=== PATIENT | female | born 1990 | race African-American/Black ===

== ENCOUNTER 2019-05-13 09:18 | Emergency (ER) | payer OTHER, SELFPAY ==
[2019-05-13 09:29] VITALS: BP 128/85; PULSE 80; RESP 16; TEMP 36.8; O2SAT 100
--- NOTE | 2019-05-13 09:30 | ED.URI ---
HPI - URI/Sore Throat General Chief Complaint: Upper Respiratory Infection Stated Complaint: sinus drainage/vomiting Time Seen by Provider: 05/13/19 09:30 Source: patient and RN notes reviewed History of Present Illness HPI Narrative: Patient is a 28-year-old female that presents the urgent care with complaints of nausea due to postnasal drainage. Patient states that she does have a mild sore throat that started after the drainage. States that symptoms started on Friday and she is taken TheraFlu. Patient states that she typically takes Mucinex for her symptoms but has not recently taken any. Patient states that she was on her way to work and did not make it and therefore needed to be seen . Patient denies any abdominal pain or fever. Denies any known exposure to COVID. No other acute complaints. No acute distress noted. Patient read the plan of care. Related Data Home Medications Medication Instructions Recorded Confirmed ergocalciferol (vitamin D2) 1,250 mcg PO DAILY 05/13/19 05/13/19 metronidazole 500 mg PO DAILY 05/13/19 05/13/19 Allergies Allergy/AdvReac Type Severity Reaction Status Date / Time No Known Allergies Allergy Verified 05/13/19 09:40 Review of Systems Review of Systems: Narrative: CONSTITUTIONAL: Denies fever, chills, or sweats. EYES: Denies visual changes, redness, or discharge. ENT: Reports of postnasal drainage, sore throat CARDIOVASCULAR: Denies chest pain, palpitations, or edema. RESPIRATORY: Denies cough or dyspnea. GASTROINTESTINAL: Reports of nausea due to postnasal drainage GENITOURINARY: Denies dysuria or hematuria. SKIN: Denies rash or itching. MUSCULOSKELETAL: Denies back pain, joint pain, or myalgia. NEUROLOGIC: Denies headache, numbness, or weakness. All other systems reviewed are negative, except as documented in HPI. PMFSH Comments At the time of my signature, I reviewed and agree with the nursing past medical, surgical, social, and family history. There is no relevant family history pertinent to the patient complaint. Exam Narrative: Exam Narrative: GENERAL: This is a well-nourished, well-developed patient, in no apparent distress. HEAD: normocephalic, atraumatic. EYES: PERRL. Sclera clear/white. Vision is grossly intact. EARS: External ears normal, auditory canals clear and without drainage, TMs normal without perforation. Hearing grossly intact. NOSE: External nose normal with no obvious nasal discharge, nares without redness, clear rhinorrhea. THROAT: Mucous membranes moist, mild erythema noted posterior oropharynx with moderate postnasal drainage. NECK: Neck supple, non-tender without lymphadenopathy CARDIOVASCULAR: Regular rate and rhythm without murmurs, gallops, or rubs. RESPIRATORY: Clear to auscultation. Breath sounds equal bilaterally. No wheezes, rales, or rhonchi. SKIN: warm, intact with no suspicious lesions or rash, good texture and turgor. NEURO: awake, alert, and oriented to person, place and time. There were no obvious focal neurologic abnormalities. EXTREMITIES: No clubbing, cyanosis, or edema. Course Vital Signs Vital signs: Vital Signs Temperature 98.3 F 05/13/19 09:29 Pulse Rate 80 05/13/19 09:29 Respiratory Rate 16 05/13/19 09:29 Blood Pressure 128/85 05/13/19 09:29 Pulse Oximetry 100 05/13/19 09:29 Temperature 98.3 F 05/13/19 09:29 Pulse Rate 80 05/13/19 09:29 Respiratory Rate 16 05/13/19 09:29 Blood Pressure 128/85 05/13/19 09:29 Pulse Oximetry 100 05/13/19 09:29 Reviewed MDM - URI/Sore Throat MDM Narrative Medical decision making narrative: Advised the patient to use [id number] antihistamine and Flonase nasal spray for postnasal drainage. Increase fluids and rest. Use humidifier at night. Patient should remain quarantined if she is symptomatic with any upper respiratory symptoms. Follow-up with PCP as necessary. Differential Diagnosis Differential diagnosis: Likely upper respiratory infection, otitis
== END 2019-05-13 09:55 | disposition home or self-care (01) ==
PROVIDERS: Emergency Provider Nurse Practitioner Family; PCP Family Medicine
DX: R09.82 Postnasal drip (principal)
CPT/HCPCS: 99211; G0463

== ENCOUNTER 2019-12-20 08:55 | Outpatient (CLI) | payer OTHER, SELFPAY ==
--- NOTE | ~2019-12-20 | XR_ITS ---
EXAMINATION: XR hysterosalpingogram INDICATION: Infertility evaluation TECHNIQUE: Hysterosalpingogram was performed by Dr. Miki Chino MD with fluoroscopic guidance. I was present to obtain fluoroscopic images. Fluoroscopy exposure time was 0.7 minutes. The DAP for th is procedure was 2.611 Gycm2. FINDINGS: Extension Service Specialist radiograph demonstrates an unremarkable pelvis. Fluoroscopic images demonstrate a no rmal appearing endometrial cavity which has been cannulated. Upon injection of contrast, both fallop taiwo tubes opacify and are normal in appearance. There is free spillage bilaterally. Uterus is withou t evidence of synechia. IMPRESSION: Patent fallopian tubes. Reviewed, dictated and finalized at location A. [employer] MEDIA DESIGNER IMPRESSION: Patent fallopian tubes.
== END 2019-12-20 08:56 | disposition home or self-care (01) ==
LOC: ANHIMG 09:03
PROVIDERS: PCP Family Medicine; Visit Provider Obstetrics & Gynecology
DX: Z31.41 Encounter for fertility testing (principal)
CPT/HCPCS: 58340; 74740; Q9966

== ENCOUNTER 2021-02-20 09:58 | Outpatient (CLI) | payer OTHER, SELFPAY ==
[2021-02-20 12:03] LABS: SARS-CoV-2 RNA PCR Positive (Negative)
== END 2021-02-20 09:59 | disposition home or self-care (01) ==
LOC: CHSLAB 10:05
PROVIDERS: PCP Family Medicine; Visit Provider Pathology Anatomic Pathology & Clinical Pathology
DX: U07.1 COVID-19 (principal)
CPT/HCPCS: C9803; U0003; U0005

== ENCOUNTER 2021-03-09 14:01 | Emergency (ER) | payer OTHER, SELFPAY ==
[2021-03-09 14:10] VITALS: BP 140/88; PULSE 78; RESP 16; TEMP 36.9; O2SAT 100
--- NOTE | 2021-03-09 14:35 | ED.WOUNDLAC ---
HPI - Wound/Laceration General Chief Complaint: Wound/Laceration Stated Complaint: finger laceration Time Seen by Provider: 03/09/21 14:25 Source: patient, family and RN notes reviewed History of Present Illness HPI narrative: 30-year-old female [facility]eration to her right index finger palmar side distally which occurred around 8:00 this morning when she was securing a fresh razor blade onto the machine at work.. She works as a dentures lab technician, denies any tingling or numbness to her finger and has full mobility of right index finger. Patient states that she has not had an updated tetanus shot. Patient reports that she has had a hard time getting bleeding to stop, presently bleeding controlled. Onset (ago): hour(s) (At 0800 today) Extremity Location: Right: hand (right distal index nice) Place: work Patient tetanus UTD: No Context: accidental Related Data Home Medications Medication Instructions Recorded Confirmed ergocalciferol (vitamin D2) 1,250 mcg PO DAILY 05/13/19 05/13/19 Allergies Allergy/AdvReac Type Severity Reaction Status Date / Time No Known Allergies Allergy Verified 05/13/19 09:40 Review of Systems Review of Systems: CONSTITUTIONAL: Denies fever, chills, or sweats. EYES: Denies visual changes, redness, or discharge. ENT: Denies rhinorrhea, congestion, sore throat, or otalgia. CARDIOVASCULAR: Denies chest pain, palpitations, or edema. RESPIRATORY: Denies cough or dyspnea. GASTROINTESTINAL: Denies abdominal pain, nausea, vomiting, or diarrhea. GENITOURINARY: Denies dysuria or hematuria. SKIN: Denies rash or itching.Positive for laceration to the distal nice aspect of her right index finger MUSCULOSKELETAL: Denies back pain, joint pain, or myalgia. NEUROLOGIC: Denies headache, numbness, or weakness. PSYCHIATRIC: Denies anxiety or depression. 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 There is no relevant family history pertinent to the presenting complaint Exam Narrative: GENERAL: Well-appearing, well-nourished, and in no acute distress. HEAD: Normocephalic, atraumatic. EYES: PERRLA and EOMI. ENT: Nares clear, no rhinorrhea or epistaxis. Mucous membranes moist.TM's normal with good light reflex, throat pink with no lesions or exudates noted NECK: Supple.no lymphadenopathy CHEST: Clear to auscultation. No respiratory distress. SAO2 100% on room air HEART: Regular rate and rhythm.2/ murmur heard. Normal peripheral pulses. ABDOMEN: Soft, nontender, nondistended, normal active bowel sounds. EXTREMITIES: Normal range of motion. No edema. SKIN: Warm, dry, no rash, laceration to the right distal nice finger, 0.75cm in length linear, no tingling or numbness to her right index finger full mobility and circulation is intact. NEURO: No focal deficits. Alert and oriented x3. Course Course Level of Care: Express Care Visit Vital Signs Vital signs: Vital Signs Temperature 36.9 C 03/09/21 14:10 Pulse Rate 78 03/09/21 14:10 Respiratory Rate 16
[2021-03-09] MEDS: TETANUS,DIPHTHERIA,AC PERTUSSIS ADULT (0.5 ML) BOOSTRIX IM (15:11)
== END 2021-03-09 15:15 | disposition home or self-care (01) ==
PROVIDERS: Emergency Provider Registered Nurse; PCP Family Medicine
DX: S61.210A Laceration without foreign body of right index finger without damage to nail, initial encounter (principal); W26.8XXA Contact with other sharp object(s), not elsewhere classified, initial encounter; Y99.0 Civilian activity done for income or pay; Z23 Encounter for immunization; R01.1 Cardiac murmur, unspecified
CPT/HCPCS: 12001; 90471; 90715; 99212; G0463

== ENCOUNTER 2021-05-23 08:13 | Outpatient (CLI) | payer OTHER, SELFPAY ==
--- NOTE | ~2021-05-23 | US_ITS ---
EXAMINATION: US OB <=14 wk fetus w TV DATE: 05/23/2021 09:47 INDICATION: Uncertain dating of during first trimester TECHNIQUE: Real-time pelvic ultrasound utilizing transabdominal probe was performed. The des oneill radiologist was not present for the study. COMPARISON: None. FINDINGS: The uterus measures 113 x 7.0 x 6.1 cm. There is an intrauterine gestational sac. A yolk sac and fet al pole are identified. The crown rump length measures 9 mm, which correlates with an estimated gesta tional age of 6 weeks and ex days. heart motion is identified measuring 142 beats per minute (b pm) by M-mode Doppler. Hypoechoic likely subchorionic hematoma along the anterior to fundal margins o f the gestational sac which measures approximately 2-2.5 cm proximal to distal, 5.2 cm from left to r ight and approximately 5 mm in thickness. The right ovary measures 4.2 x 2.4 x 3.0 cm. 2.1 cm right ovarian likely corpus luteum cyst which is centrally anechoic with thick isoechoic peripheral mass. The left ovary measures 2.5 x 1.9 x 1.7 cm. 4 mm anechoic left ovarian cyst/follicle. There is no free fluid in the pelvis. IMPRESSION: 1. Single living fetus with heart rate of 142 bpm. 2. Gestational age by ultrasound of 6 weeks 6 day(s) +/- 4 day(s) with ultrasound estimated date of delivery (BALJINDER) of 01/10/2022. 3. Moderate-sized subchorionic hematoma which extends along the anterior and fundal aspects of the ge stational sac. Reviewed, dictated and finalized at location B. IMPRESSION: 1. Single living fetus with heart rate of 142 bpm. 2. Gestational age by ultrasound of 6 weeks 6 day(s) +/- 4 day(s) with ultraso und estimated date of delivery (BALJINDER) of 01/10/2022. 3. Moderate-sized subchorionic hematoma which extends along the anterior and fu ndal aspects of the gestational sac.
== END 2021-05-23 08:14 | disposition home or self-care (01) ==
PROVIDERS: PCP Family Medicine; Visit Provider Obstetrics & Gynecology Gynecology
DX: Z36.87 Encounter for antenatal screening for uncertain dates (principal); Z3A.01 Less than 8 weeks gestation of pregnancy
CPT/HCPCS: 76801; 76817

== ENCOUNTER 2021-06-05 09:36 | Outpatient (CLI) | payer OTHER, SELFPAY ==
--- NOTE | ~2021-06-05 | US_ITS ---
EXAMINATION: US OB <= 14 weeks fetus EXAM DATE: 06/05/2021 10:20 INDICATION: Subchorionic hematoma. 1st trimester. TECHNIQUE: Pelvic obstetrical transabdominal sonogram was performed by a technologist. There are mu ltiple grayscale and Doppler images available for interpretation. Comparison is made to prior examina tion from 05/23/2021. FINDINGS: Uterus measures 10.7 x 8.3 x 6.3 cm. There is intrauterine gestation sac. pole with heart rate confirmed at 171 beats per minute. The 2.5 cm crown-rump length corresponds to estimated gestational age by ultrasound of 9 weeks 1 day. Yolk sac is identified. Subchorionic hematoma now i s hypoechoic, has subacute appearance, measuring 2.5 x 1.7 x 3.5 cm, mild interval decrease in size. Ovaries not specifically identified. IMPRESSION: Live intrauterine gestation with small to moderate size subacute subchorionic hematoma, interval improvement. Reviewed, dictated and finalized at location A. IMPRESSION: Live intrauterine gestation with small to moderate size subacute s ubchorionic hematoma, interval improvement.
== END 2021-06-05 09:37 | disposition home or self-care (01) ==
PROVIDERS: PCP Family Medicine; Visit Provider Obstetrics & Gynecology Gynecology
DX: O36.8910 Maternal care for other specified fetal problems, first trimester, not applicable or unspecified (principal); Z3A.00 Weeks of gestation of pregnancy not specified
CPT/HCPCS: 76801

== ENCOUNTER 2021-06-20 15:03 | Outpatient (CLI) | payer OTHER, SELFPAY ==
--- NOTE | ~2021-06-20 | US_ITS ---
EXAMINATION: US OB <= 14 weeks fetus INDICATION: SUBCHORIONIC HEMORRHAGE 1ST TRIMESTER TECHNIQUE: Sonography of the pelvis was performed by transabdominal and transvaginal techniques. COMPARISON: 06/05/21 RESULT: Uterus: - Orientation: Anteverted - Size: 10.3 x 7.7 x 9.4 cm - Myometrium: homogeneous echogenicity Gestation: - Intrauterine gestational sac: Single present - Embryo: Single present. Yolk sac is present but was not directly measured by the stock feeder . - [place] rump length: 4.55 cm, corresponding gestational age 11 weeks, 1 days -Gestational heart rate: present 157 bpm -Subgestational hematoma: Small hypoechoic area adjacent to the gestational sac in the region of previously identified subdural gestational hematoma, subjectively much smaller, not directly measu red by the stock feeder. Right ovary: -Not visualized Left ovary: -Not visualized Pelvis free fluid: None. IMPRESSION: Single, live intrauterine gestation. Estimated Gestational Age: 11 weeks, 1 days by crown rump length. BALJINDER 01/10/2022, [place] by BALJINDER 10 weeks 6 days. Continued interval improvement in the small subchorionic hematoma. Reviewed, dictated and finalized at location K.
== END 2021-06-20 15:04 | disposition home or self-care (01) ==
PROVIDERS: PCP Family Medicine; Visit Provider Obstetrics & Gynecology Gynecology
DX: O36.8910 Maternal care for other specified fetal problems, first trimester, not applicable or unspecified (principal); Z3A.11 11 weeks gestation of pregnancy
CPT/HCPCS: 76801

== ENCOUNTER 2021-07-23 10:56 | Outpatient (CLI) | payer OTHER, SELFPAY ==
--- NOTE | ~2021-07-23 | US_ITS ---
EXAMINATION: US OB follow up DATE: 07/23/2021 11:46 INDICATION: Subchorionic hematoma. TECHNIQUE: Real-time ultrasound of the pelvis was performed. COMPARISON: 06/20/2021. FINDINGS: There is a single living fetus in breech presentation. The placenta is posterior end lies within 1.1 cm of the cervix. No subgestational hematoma is detected in this exam. heart rate is 145 beats per minute (bpm). The amniotic fluid index was not measured in this exam, but is subjectively within normal limits.] Left ovary is normal in size and morphology. Right ovary not visualized. The following biometric data were obtained: Biparietal diameter (BPD): 3.2 cm; head circumference (HC): 12.3 cm; abdominal circumference (AC): 9. 6 cm; femur length (FL): 1.9 cm. These measurements are concordant. Estimated weight is 132.4 g +/- 19.9 g, which correlates with the 49th percentile when 01/11/20 is used as estimated date of delivery. As single measurements, these parameters are each equal to the following estimated gestational ages w ith ranges of +/- 2 standard deviations: BPD: 16 weeks 0 days +/- 1 weeks 1 days. HC: 16 weeks 1 days +/- 1 weeks 1 days. AC: 15 weeks 5 days +/- 1 weeks 5 days. FL: 15 weeks 4 days +/- 1 weeks 3 days. estimated gestational age based solely on measurements from this exam is 15 weeks 6 days +/- 1 weeks 1 days. IMPRESSION: 1. Single living fetus in breech presentation. 2. Posterior placenta that lies within 1.1 cm of the cervix. 3. Interval resolution of the previously described subchorionic hematoma. 4. Based on measurements from this examination: EFW 132.4 g, EGA 15 weeks 6 days, BALJINDER 01/08/2022. 5. BALJINDER by prior ultrasound 01/10/2022. Reviewed, dictated and finalized at location K. IMPRESSION: 1. Single living fetus in breech presentation. 2. Posterior placenta that lies within 1.1 cm of the cervix. 3. Interval resolution of the previously described subchorionic hematoma. 4. Based on measurements from this examination: EFW 132.4 g, EGA 15 weeks 6 da ys, BALJINDER 01/08/2022. 5. BALJINDER by prior ultrasound 01/10/2022.
== END 2021-07-23 10:57 | disposition home or self-care (01) ==
PROVIDERS: PCP Family Medicine; Visit Provider Obstetrics & Gynecology Gynecology
DX: O36.8920 Maternal care for other specified fetal problems, second trimester, not applicable or unspecified (principal); Z3A.00 Weeks of gestation of pregnancy not specified
CPT/HCPCS: 76816

== ENCOUNTER 2022-01-03 18:37 | Inpatient (IN) | payer OTHER, SELFPAY ==
[2022-01-03] VITALS (12 sets, daily range): BP systolic 105–118; BP diastolic 73–83; PULSE 74–90; TEMP 36.4–36.6; BMI 29.8
--- OUTSIDE RECORDS SUMMARY | 2022-01-03 18:43 | XMS_ITS ---
:1990 Author Care Team Providers Name Role Phone Brook Copeland Primary Care Provider Unavailable Allergies Code Code System Name Reaction Severity Status Onset NKDA ? Medications Name Status Start Date Stop Date ? ? amoxicillin 875 mg tablet Active ? Not av ailable TK 1 T PO Q 12 H FOR 7 DAYS ergocalciferol (vitamin D2) 1,250 mcg (50,000 unit) Active ? Not available capsule 03/08 (28) 1 mg-20 mcg (21)/75 mg (7) tablet Completed ? 07/14/2018 TK 1 T PO QD metronidazole 0.75 % (37.5 mg/5 gram) vaginal gel Completed ? 03/04/2019 metronidazole 500 mg tablet Active ? Not available TAKE 1 TABLET BY MOUTH TWICE DAILY terconazole 0.8 % vaginal cream Completed ? 03/04/2019 Notes: vitamin Problems No Known Problems Procedures None recorded. Results Lab Results None recorded. Past Encounters 03/20/2021 Removal of Suture MARIANO Daily: [address] , [place] [address], Ph. Social History None recorded. Vaccine List Vaccine Type Non-US Vaccine COVID-19 IV (COVAXIN) 03/31/2020 04/28/2020 Plan of Care Reminders Provider Appointments None recorded. ? ? Lab None recorded. ? ? Referral None recorded. ? ? Procedures None recorded. ? ? Surgeries None recorded. ? ? Imaging None recorded. ? ?
--- OUTSIDE RECORDS SUMMARY | 2022-01-03 18:43 | XMS_ITS ---
[...] Completed ? 03/04/2019 metronidazole 500 mg tablet Completed ? 02/17 terconazole 0.8 % vaginal cream Completed ? 03/04/2019 Notes: vitamin Problems Name Status Onset Date Source ? Congenital Stenosis Active 07/14/2018 ? Procedures Date Name Performed by ? ? Open Heart Surgery Information not avai lable Notes: congenital subaortic stenosis 1 997 07/14/2018 [facility] ([place] [address] [place] [address] ([address]) Results Lab Results None recorded. Past Encounters None recorded. Social History Tobacco Smoking Status Never Smoker Vaccine List None recorded. Plan of Care Reminders Provider Appointments None recorded. ? ? Lab None recorded. ? ? Referral None recorded. ? ? Procedures None recorded. ?
--- NOTE | 2022-01-03 19:51 | P.PNAN_ITS ---
Anes - Eval Pre Procedure Procedure: Labor epidural Date/Time: 01/03/22 19:51 Surgeon: Ml Preop Diagnosis: Abdominal pain with contractions Pre Op Diagnosis: IOL Patient Data Age: 31 Gender: F Height: Weight: Last Vital Signs Pulse 80 01/03/22 19:30 BP 109/77 01/03/22 19:30 Allergies Allergy/AdvReac Type Severity Reaction Status Date / Time No Known Allergies Allergy Verified 12/21/21 14:37 Home Medications Medication Instructions Recorded Confirmed Type ergocalciferol (vitamin D2) 1,250 1,250 mcg PO 2XW 05/13/19 05/13/19 History mcg (50,000 unit) capsule aspirin 81 mg tablet,delayed 81 mg PO DAILY 12/21/21 12/21/21 History release (Anmol Low Dose Aspirin) ferrous sulfate 325 mg (65 mg 325 mg PO BID 12/21/21 12/21/21 History iron) tablet,delayed release prenat.vits,chastity,[id number] 1 tablet PO DAILY 12/21/21 12/21/21 History : gestational age HCG: positive Patient hx anesthesia problems: none Family hx anesthesia problems: none Results Review: All pre-operative results and documents have been reviewed as part of the pre- operative evaluation. [facility] Past Medical History Medical History (Updated 01/03/22 @ 20:04 by Jose Hernandez CRNA) Heart murmur sees cardiology Overweight (BMI 25.0-29.9) and not yet delivered Surgical History Surgical History (Updated 03/09/21 @ 18:30 by Krysten Keita NP) History of open heart surgery for aortic blockage at age of 5 [place] teeth extracted Family History Family History (Updated 12/21/21 @ 14:40 by Kai Torrez RN) Mother Hypertension Asthma Grandparent Diabetes mellitus Kidney failure Lung cancer Sibling Diabetes mellitus Father Prostate carcinoma Social History Social History (Updated 03/09/21 @ 18:32 by Krysten Keita NP) Smoking status: Never smoker Alcohol intake: current Alcohol use details: rare social Substance use: never Gender identity (if verbalized by the patient): Female Spiritual care concerns: No Exam Day of Procedure 01/03/22 19:51 Patient weight: overweight Airway: Mallampati scale class II
[2022-01-03 19:55] LABS: Basophils Percent Auto 0.2 % (0.2-1.2); Eosinophils Percent Auto 0.6 % (0-4.4); Hematocrit 32.9 % (37.0-47.0); Hemoglobin 11.5 g/dL (12.0-15.0); Immature Granulocyte Absolute 0.01 K/mm3 (0.00-0.031); Immature Granulocyte Percent A 0.2 % (0-0.5); Lymphocytes Absolute Auto 1.32 K/mm3 (0.9-3.2); Lymphocytes Percent Auto 24.5 % (18.3-44.2); Mean Corpuscular Hemoglobin 33.2 pg (26-34); Mean Corpuscular Volume 95.1 fl (80-100); Mean Platelet Volume 10.1 fl (7.4-10.4); Monocytes Absolute Auto 0.4 K/mm3 (0.1-0.6); Monocytes Percent Auto 7.8 % (2.6-8.5); Neutrophils Absolute Auto 3.6 K/mm3 (1.3-6.7); Neutrophils Percent Auto 66.7 % (45.5-73.1); Platelet Count Result 177 k/mm3 (150-375); Red Blood Count 3.46 M/mm3 (4.2-5.4); Red Cell Distribution Width 12.5 % (11.5-14.5); White Blood Count 5.4 K/mm3 (4.5-10.0)
[2022-01-03] MEDS: LACTATED RINGERS 1,000 ML 125 ML IV CONT (19:57)
[2022-01-03] MEDS: AMPICILLIN 2 GM/NS 100 ML 2 GM/100 ML BAG IVPB (20:01)
--- NOTE | 2022-01-03 20:07 | LDADM ---
This patient, Israel Banks, was admitted to Labor/Delivery/Recovery 107 on 01/03/22 at 18:37. Plans for labor, pain management and were discussed with patient. Patient/family oriented to hospital policies and general routines including ID bracelet, bed and alarms, visiting hours, pain management, procedures, bathroom and other care routines, personal items, smoking policy, room service/diet and guest tray routines, infant security routines, and visiting hours. Patient/Family are encouraged to report perceived risks to care and to ask questions if they do not understand what they are told or what they should do. See OBIX for further documentation.
[2022-01-03] MEDS: miSOPROStol 25 MCG TABLET VAGINAL (20:24)
[2022-01-04] VITALS (27 sets, daily range): BP systolic 90–126; BP diastolic 53–89; PULSE 73–206; RESP 15–18; TEMP 36.4–37.3; O2SAT 98–100
[2022-01-04] MEDS: AMPICILLIN 1 GM/NS 50 ML 1 GM/50 ML BAG IVPB (00:01)
[2022-01-04] MEDS: miSOPROStol 25 MCG TABLET VAGINAL (00:31)
[2022-01-04] MEDS: OXYTOCIN 30 UNITS/NS 500 ML 30 UNITS/500 ML BAG 999 UNITS IV CONT (04:10)
[2022-01-04] MEDS: LIDOCAINE HCL 1% PF 30 ML VIAL ×2 (04:15)
[2022-01-04] MEDS: miSOPROStol 200 MCG TABLET 800 MCG RECTAL (04:36)
[2022-01-04] MEDS: METHYLERGONOVINE MALEATE 0.2 MG/ML VIAL IM (04:38)
[2022-01-04] MEDS: OXYTOCIN 30 UNITS/NS 500 ML 30 UNITS/500 ML BAG 125 UNITS IV CONT (04:46)
--- NOTE | 2022-01-04 05:31 | P.PCNOB_ITS ---
OB - Delivery Note Procedure Delivery date: 01/04/22 Procedure: Events: Positive Group B Strep (GBS) Induction method: Per Misoprostol Protocol Delivery monitor: External FHT and External Uterine Route of delivery: Episiotomy description: None Laceration Description: Perineal - 2nd Degree Delivery repair: vicryl Specimen: No Quantitative Blood Loss (ml): 400 Anesthesia type: Local Disposition: Floor Narrative: Continuous Miner Operator called at 3:39 a.m. that patient was complete dilation. CNM to hospital. On arrival patient was bearing down with contractions and the head was at a stoplight crown. She pushed spontaneously with the next 2 contractions and delivered the head in a controlled fashion. There was excellent restitution and the remainder of the was delivered slowly. the infant was placed on the maternal abdomen and care was assumed by the nurse. After at least 1 minute of life the cord was doubly clamped and cut and the was placed skin to skin. Cord blood and gases were obtained. The placenta delivered spontaneously. Local anesthetic was administered and A vaginal/perineal laceration was repaired in the usual fashion. During the repair the patient had a few small clots expressed. Rectal Cytotec and Methergine were given for hemostasis. [place] Baby Date of : 01/04/22 Time of : 04:05 Weeks of gestation at delivery: 39 Infant gender: Male Weight (pounds): 0 (unavailable at this time due to skin to skin with mother) presentation: vertex position: Right Occiput Anterior Placenta delivery description: Spontaneous Cord Vessel Description: 3 Vessels score one minute: 9 score five minutes: 9
--- NOTE | 2022-01-04 06:05 | PM.DS ---
DS: Admitting Diagnosis Discharge Date 01/06/22 Admitting Diagnosis IUP at 30 weeks Induction of labor Umbilical hernia Hx Aortic Stenosis, s/p open heart surgery in 1996 (Cleared for and valsalva by cardiology) DS: Discharge Diagnosis Discharge Diagnosis (1) Heart murmur: Code(s): R01.1 - Cardiac murmur, unspecified Status: Acute (2) Mother currently breast-feeding: Code(s): Z39.1 - Encounter for care and examination of lactating mother Status: Acute Assessment and Plan: without issues. Supplementing with formula. (3) (normal spontaneous vaginal delivery): Code(s): O80 - Encounter for full-term uncomplicated delivery Status: Acute Assessment and Plan: Pain well controlled with Tylenol and Ibuprofen DS: Summary Hospital Course Reason for hospitalization: Childbirth Hospital Course: Uncomplicated Status at Discharge Functional status at discharge: independent ambulation Overall status at discharge: patient is progressing back to baseline Time Spent with Patient Time attestation: Total time spent providing and/or coordinating discharge services: Time spent: Less than 30 minutes Exam Narrative: Alert and oriented. Mood is pleasant and cooperative. Urinating without difficulty. Denies passing any large clots. Perineum with minimal edema. Const: General: healthy appearing and no acute distress Orientation/consciousness: patient oriented x3 Limitations: no limitations Resp: Effort & Inspection: normal respiratory effort Auscultation: clear to auscultation bilaterally Cardio: Rate: regular rate GI: Inspection: normal to inspection : Other: Fundus firm and 3 below U Neuro: General: patient oriented x3 Extrem: General: normal to inspection Psych: Appearance: grossly normal Mental Status: mental status grossly normal Affect: normal affect Thought process: Normal thought process present DS: Data Data Completed and Pending Labs on day of discharge: Labs from last 24 hours 01/03/22 01/03/22 01/03/22 19:30 19:30 19:30 WBC 5.4 RBC 3.46 L Hgb 11.5 L Hct 32.9 L MCV 95.1 MCH 33.2 MCHC 35.0 RDW 12.5 Plt Count 177 MPV 10.1 Immature Gran % (Auto) 0.2 Neut % (Auto) 66.7 Lymph % (Auto) 24.5 [place] % (Auto) 7.8 Eos % (Auto) 0.6 Baso % (Auto) 0.2 Lymph # (Auto) 1.32 [place] # (Auto) 0.4 Eos # (Auto) 0.0 Baso # (Auto) 0.0 Abs Immat Gran (auto) 0.01 Absolute Neuts (auto) 3.6 Absolute Nucleated RBC 0.0 Nucleated RBC % 0.0 RPR Pending Blood Type A Positive Antibody Screen Negative Discharge Plan Discharge Attending physician on discharge: Jeaneth Bull Discharging Clinician: Tiffany Benitez Anticipated Discharge Date/Time: 01/06/22 11:00 Patient Disposition: Home, Self-Care Activity: may shower and no straining Diet: as tolerated and regular Discharge Instructions: Continue taking your vitamin and any other supplements as previously directed (Examples: Iron, Vitamin D). You may take Tylenol 1000mg over the counter every 6 hours as needed for pain. Do not exceed 4000mg of Tylenol daily. You may continue using tucks pads and dermoplast spray if needed for a few more days. Patient Instructions: Antibiotic Form Stand Alone Forms: General Discharge Information Follow-up/Referrals: Tiffany Benitez, [facility] [Certified Nurse Commercial Credit Reviewer] - (6 week pp exam) Discharge Medications: New docusate sodium 100 mg Capsule 100 mg PO BID PRN (Reason: Constipation) 14 Days Qty: 30 0RF ibuprofen 600 mg Tablet 600 mg PO Q6H PRN (Reason: Cramping) 14 Days Qty: 30 0RF Continued ferrous sulfate 325 mg (65 mg iron) Tablet,Delayed Release (Dr/Ec) 325 mg PO BID #2 Tablet 1 tablet PO DAILY Discontinued ergocalciferol (vitamin D2) 1,250 mcg (50,000 unit) capsule 1,250 mcg PO 2XW
--- NOTE | 2022-01-04 06:08 | WPDOBADMIT ---
Obstetrics - Admit Note Admission Note: record reviewed. No pertinent additions to the history and/or any subsequent changes in the physical findings that are not consistent with the expected course of the were found. Additions to the history and/or subsequent changes in the physical findings follow. None.
[2022-01-04] MEDS: IBUPROFEN 600 MG TABLET (08:20)
[2022-01-04] MEDS: FERROUS SULFATE 324 MG TABLET PO (10:06)
[2022-01-04] MEDS: MULTIVIT/MIN/PREN/FOL AC/IRON TABLET 1 TAB PO (10:06)
--- NOTE | 2022-01-04 12:11 | PC.NURSE ---
[id number] Introductions were made, then consulted with patient to assess needs related to related to primary RN's request for assistance. Encouraged mother to unwrap, undress and stimulate her for wakefulness. Reviewed waiting for a big, wide, open gape, then bringing infant to the breast to receive a big mouthful. Mother denied any pain with . Encouraged the benefits of skin to skin, placing upright on chest, massage touch, holding and breast to assist with a deeper latch. Mother voiced understanding of information and to call for assistance if infant doesn't wake to breastfeed or if there's pain with . Primary RN is present for the consult.
[2022-01-04 15:30] LABS: Rapid Plasma Reagin Non-Reactive (NonReactive)
--- NOTE | 2022-01-04 17:35 | PC.NURSE ---
Patient transferred to post room #292 via ( W/C ). Support person present. Oriented to unit, room, information board, rooming in, admission packet and security measures. Patient verbalizes understanding.
[2022-01-05] VITALS: BP 107/77; PULSE 76; RESP 18; TEMP 37.1; O2SAT 100
[2022-01-05 04:00] VITALS: BP 121/76; PULSE 80; RESP 16; TEMP 36.6; O2SAT 99
[2022-01-05 05:20] LABS: Hematocrit 30.1 % (37.0-47.0); Hemoglobin 10.4 g/dL (12.0-15.0)
[2022-01-05 08:00] VITALS: BP 116/80; PULSE 74; RESP 16; TEMP 36.9; O2SAT 98
--- NOTE | 2022-01-05 10:30 | PM.OBPNVD ---
OB - PN: Subj Subjective Date/time seen: 01/05/22 0825 Patient comments: pain well controlled baby status: doing well [place] feeding status: exclusively breast feeding OB - PN: Obj Data Labs CBC & Chem 7: 01/05/22 04:05 Labs: Laboratory Results - last 24 hr 01/03/22 01/05/22 19:30 04:05 Hgb 10.4 L Hct 30.1 L RPR Non-reactive OB - PN A/P Plan day: 1 Plan: routine care Time Spent With Patient Time: Total time spent is greater than 50% in coordination of care (as documented) at patient's floor/unit and/or counseling patient: Review of Systems Review of Systems: All systems reviewed & are unremarkable except as noted in HPI and below Exam Narrative: Alert and oriented. Mood is pleasant and cooperative. Urinating without difficulty. Denies passing any large clots. Perineum with minimal edema. Const: General: healthy appearing and no acute distress Orientation/consciousness: patient oriented x3 Limitations: no limitations Resp: Effort & Inspection: normal respiratory effort Auscultation: clear to auscultation bilaterally Cardio: Rate: regular rate GI: Inspection: normal to inspection : Other: Fundus firm at U-3. Neuro: General: patient oriented x3 Extrem: General: normal to inspection Psych: Appearance: grossly normal Mental Status: mental status grossly normal Affect: normal affect Thought process: Normal thought process present
[2022-01-05] MEDS: IBUPROFEN 600 MG TABLET PO (15:04)
[2022-01-05] MEDS: DOCUSATE SODIUM 100 MG CAPSULE PO (15:05)
[2022-01-05] MEDS: MULTIVIT/MIN/PREN/FOL AC/IRON TABLET 1 TAB PO (15:05)
[2022-01-05 20:01] VITALS: BP 117/78; PULSE 80; RESP 18; TEMP 36.8; O2SAT 100
[2022-01-06] MEDS: IBUPROFEN 600 MG TABLET PO (07:52)
[2022-01-06] MEDS: MULTIVIT/MIN/PREN/FOL AC/IRON TABLET 1 TAB PO (07:53)
[2022-01-06] MEDS: DOCUSATE SODIUM 100 MG CAPSULE PO (07:53)
[2022-01-06 08:00] VITALS: BP 113/73; PULSE 76; RESP 16; TEMP 36.6; O2SAT 100
--- NOTE | 2022-01-06 08:01 | PC.NURSE ---
Patient viewed the discharge video Mother & Baby Care, The First Two Weeks . Patient was given the opportunity and encouraged to ask questions. Patient verbalized understanding of information shared and has been given the mother/baby guide for home reference.
--- NOTE | 2022-01-06 10:16 | P.PNOB_ITS ---
OB - PN: Subj Subjective Date/time seen: 01/06/22 0920 Patient comments: no complaints and pain well controlled baby status: doing well and nursing well [place] feeding status: exclusively breast feeding OB - PN: Obj Data Labs CBC & Chem 7: 01/05/22 04:05 OB - PN A/P Plan day: 2 Plan: discharge home Time Spent With Patient Time: Total time spent is greater than 50% in coordination of care (as documented) at patient's floor/unit and/or counseling patient: Review of Systems Review of Systems: All systems reviewed & are unremarkable except as noted in HPI and below Exam Narrative: Alert and oriented. Mood is pleasant and cooperative. Urinating without difficulty. Denies passing any large clots. Perineum with minimal edema. Const: General: healthy appearing and no acute distress [place] ation/consciousness: patient oriented x3 Limitations: no limitations Resp: Effort & Inspection: normal respiratory effort Auscultation: clear to auscultation bilaterally Cardio: Rate: regular rate GI: Inspection: normal to inspection : Other: Fundus firm and 3 below U Neuro: General: patient oriented x3 Extrem: General: normal to inspection Psych: Appearance: grossly normal Mental Status: mental status grossly normal Affect: normal affect Thought process: Normal thought process present
[2022-01-08 10:29] VITALS: BP 118/83; PULSE 83; RESP 16; TEMP 37.1; O2SAT 99
== END 2022-01-06 12:52 | disposition home or self-care (01) | DRG 807 ==
LOC: ANHLDR 01-04 06:08 → ANHOBPP 01-04 08:03 → ANHOB2 01-04 17:50
PROVIDERS: Advanced Practice Midwife; Admitting Provider Obstetrics & Gynecology Gynecology; PCP Family Medicine; Visit Provider Obstetrics & Gynecology Gynecology
DX: O99.824 Streptococcus B carrier state complicating childbirth (principal); Z37.0 Single live birth; O70.1 Second degree perineal laceration during delivery; O62.3 Precipitate labor; O76 Abnormality in fetal heart rate and rhythm complicating labor and delivery; Z3A.39 39 weeks gestation of pregnancy; Z86.79 Personal history of other diseases of the circulatory system
CPT/HCPCS: 36415; 85014; 85018; 85025; 86592; 86850; 86900; 86901; A9270; J0290; J2210; J2590; J7120

== ENCOUNTER 2022-08-07 11:28 | Emergency (ER) | payer OTHER, SELFPAY ==
[2022-08-07 11:34] VITALS: BP 140/99; PULSE 81; RESP 18; TEMP 37.1; O2SAT 100
--- NOTE | 2022-08-07 11:50 | ED.URI ---
HPI - URI/Sore Throat General Chief Complaint: Upper Respiratory Infection Stated Complaint: SORE THROAT Time Seen by Provider: 08/07/22 11:50 Source: patient and RN notes reviewed Mode of arrival: ambulatory Limitations: no limitations History of Present Illness HPI Narrative: 31-year-old female presents concern for history of sore throat, nasal congestion, cough that started on Friday. She reports she has taken some [id number] cold medicines without relief. She denies fever, aches, chills, sweats. Reports painful cough MD elicited complaint: cough, sore throat and nasal congestion Related Data Allergies Allergy/AdvReac Type Severity Reaction Status Date / Time No Known Allergies Allergy Verified 01/03/22 20:49 Review of Systems Review of Systems: CONSTITUTIONAL: Denies malaise, chills, sweats, or fever. EYES: Denies visual changes, redness, or discharge. ENT: Reports rhinorrhea, congestion, sore throat. Denies sinus pain, otalgia CARDIOVASCULAR: Denies chest pain, palpitations, or edema. RESPIRATORY: Reports cough. Denies dyspnea. GASTROINTESTINAL: Denies abdominal pain, nausea, vomiting, diarrhea SKIN: Denies rash or itching. MUSCULOSKELETAL: Denies myalgia. NEUROLOGIC: Denies headache. All systems reviewed & are unremarkable except as noted in HPI and below PMFSH Past Medical History Medical History (Updated 08/07/22 @ 11:57 by Tanvi Charles NP) Heart murmur sees cardiology Overweight (BMI 25.0-29.9) and not yet delivered Surgical History Surgical History (Updated 01/03/22 @ 20:01 by Jose Hernandez CRNA) History of open heart surgery for aortic blockage at age of 5 [place] teeth extracted Family History Family History (Updated 12/21/21 @ 14:40 by Kai Torrez RN) Mother Hypertension Asthma Grandparent Diabetes mellitus Kidney failure Lung cancer Sibling Diabetes mellitus Father Prostate carcinoma Social History Social History (Updated 03/09/21 @ 18:32 by Krystne Keita NP) Smoking status: Never smoker Alcohol intake: current Alcohol use details: rare social Substance use: never Lack of Transportation: No Lack of Food: Never True Current Housing: I Have Housing Concerned About Future Housing: No Difficulty Paying Gas/Electric Bills: No Difficulty Paying for Meds: No Currently Unemployed: No Education: Associate Degree Difficulty w/ Childcare or Family Care: No Living arrangements: with family Gender identity (if verbalized by the patient): Female Spiritual care concerns: No Comments At time of signature, agree with nursing past medical, surgical, social and family history. There is no relevant family history pertinent to the presenting complaint Exam Narrative: GENERAL: Well-appearing, well-nourished, and in no acute distress. HEAD: Normocephalic EYES: PERRLA, conjunctivae clear ENT: Nares clear, turbinates edematous and erythematous, clear discharge. Mucous membranes moist. TM pearly buckner with dull light reflex bilaterally; no tragal tenderness. Oropharynx not erythematous without lesions. Tonsils not enlarged and without exudate, no drooling, no hoarseness, no trismus, uvula midline. NECK: Supple. No lymphadenopathy CHEST: Clear to auscultation, breath sounds equal. No wheezing, rhonchi, rales, or stridor. No respiratory distress, speaks in full sentences. HEART: Regular rate and rhythm. No murmur heard. SKIN: Warm, dry, no rash. NEURO: Alert and oriented x3. PSYCH: Normal mood and affect Course Course Emergency Course: Patient is aware of diagnosis, understands and agrees to treatment plan. Anticipatory guidance given. Patient agrees to follow-up as directed and is aware of reasons to seek care at the emergency department. Portions of this record may have been created with voice recognition software Level of Care: Express Care Visit Vital Signs Vital signs: Vital Signs Temperature 98.7 F 06/
== END 2022-08-07 12:07 | disposition home or self-care (01) ==
PROVIDERS: Emergency Provider Nurse Practitioner; PCP Family Medicine
DX: J06.9 Acute upper respiratory infection, unspecified (principal); R01.1 Cardiac murmur, unspecified
CPT/HCPCS: 87081; 87880; 99213; G0463

== ENCOUNTER 2024-01-01 08:30 | Emergency (ER) | payer OTHER, SELFPAY ==
--- NOTE | 2024-01-01 08:43 | ED_ITS ---
HPI - URI/Sore Throat General Chief Complaint: Upper Respiratory Infection Stated Complaint: Sinus Infection Symptoms Time Seen by Provider: 01/01/24 08:44 Source: patient Mode of arrival: ambulatory Limitations: no limitations History of Present Illness HPI Narrative: Israel is a 33-year-old female patient presenting to the clinic today with complaints of nasal congestion, cough, and sinus pressure x4 days. She reports symptoms started on Friday. Denies any fever, chills, or body aches currently. Denies any chest pain or shortness of breath. MD elicited complaint: cough, nasal congestion and sinus pain Related Data Allergies Allergy/AdvReac Type Severity Reaction Status Date / Time No Known Allergies Allergy Verified 01/01/24 08:47 Review of Systems Review of Systems: Pertinent positives per HPI. Patient denies any fever, chills, rash, headache, visual changes, dizziness, cough, shortness of breath, chest pain, palpitations, nausea, vomiting, diarrhea, constipation, abdominal pain, or any urinary issues. [facility] Past Medical History Medical History Heart murmur sees cardiology Overweight (BMI 25.0-29.9) and not yet delivered Surgical History Surgical History History of open heart surgery for aortic blockage at age of 5 [place] teeth extracted Family History Family History Mother Hypertension Asthma Grandparent Diabetes mellitus Kidney failure Lung cancer Sibling Diabetes mellitus Father Prostate carcinoma Social History Social History Smoking status: Never smoker Alcohol intake: current Alcohol use details: rare social Substance use: never Lack of Transportation: No Lack of Food: Never True Current Housing: I Have Housing Concerned About Future Housing: No Difficulty Paying Gas/Electric Bills: No Difficulty Paying for Meds: No Currently Unemployed: No Education: Associate Degree Difficulty w/ Childcare or Family Care: No Living arrangements: with family Gender identity (if verbalized by the patient): Female Spiritual care concerns: No Comments At the time of my signature, I reviewed and agree with the nursing past medical, surgical, social, and family history. There is no relevant family history pertinent to the patient complaint. Exam Narrative: General: Well-developed, well nourished, in no apparent distress Head: Normocephalic, atraumatic Eyes: Pupils equally round and reactive to light bilaterally, EOM intact, sclera and conjunctive clear, no discharge, lids normal Ears: TMs intact and clear, ear canals clear, no drainage, grossly hearing enrique l. Nose: Nares patent, yellow nasal discharge, moderate inflammation, frontal sinus tenderness. Mouth: Oral pharynx without lesions or masses, good dentition, MMM. Postnasal drip Neck: Supple, trachea midline, no enlargement of anterior or posterior cervical nodes, no thyroid masses or goiter palpable. Cardio: Regular rate and rhythm, s1 and s2 normal, no murmur appreciated. Resp: Clear to auscultation bilaterally, no rhonchi, rales, wheezing or rubs Course Course Emergency Course: Portions of this record may have been created with voice recognition software. Level of Care: Express Care Visit Vital Signs Vital signs: Vital signs reviewed MDM - URI/Sore Throat MDM Narrative Medical decision making narrative: At the time of visit patient is resting comfortably on the exam table. Patient appears to be nontoxic. Plan: I suspect patient has URI. Prescription for prednisone was sent to the pharmacy. Supportive measures were discussed with the patient and they voiced understanding discharge instructions and agrees to treatment plan. Return precautions reviewed Differential Diagnosis Differential diagnosis: Likely upper respiratory infection, otitis media, sinusitis, viral infection, bronchitis, influenza, pharyngitis and other (COVID) Discharge Plan Discharge Clinical Impression: URI (upper respiratory infection) Qualifiers: URI type: unspecified URI Qualified Code(s): J06.9 - Acute upper respiratory infection, unspecified Patient Disposition: Home, Self-Care Condition: Stable Instructions: Antibiotic Form, Upper Respiratory Infection (ED) Additional Instructions: Take prescription medications only as prescribed-prednisone May take [id number] Mucinex as discussed Increase fluids and stay well hydrated Tylenol/motrin for pain/fever Flonase and OTC antihistamines as directed Vicks vapor rub to open sinuses Sinus rinses for congestion Cepacol spray, cough drops, throat lozenges, warm tea with honey/lemon, gargle salt water to soothe throat BRAT diet for diarrhea Clear liquids x 24 hours then advance as tolerated for nausea/vomiting Go to the ED if you develop a worsening in your condition- high fever not controlled by Tylenol or Motrin, dehydration, weakness, lethargy, shortness of breath, or chest pain. Follow up with your PCP in 3-5 days if symptoms persist. Prescriptions: New prednisone 20 mg tablet 40 mg PO DAILY 5 Days Qty: 10 0RF Follow-up/Referrals: PHYSICIAN,DENTAL TECHNOLOGY ADVISOR [Primary Care Provider] - Time of Disposition: 08:52 Quality NIHSS Nursing Documentation ED NIHSS nursing documentation: reviewed/agree
[2024-01-01 08:48] VITALS: BP 138/102; PULSE 86; RESP 16; TEMP 36.6; O2SAT 100
== END 2024-01-01 09:12 | disposition home or self-care (01) ==
PROVIDERS: Emergency Provider Nurse Practitioner Family
DX: J06.9 Acute upper respiratory infection, unspecified (principal)
CPT/HCPCS: 99213; G0463